=== PATIENT | female | born 1990 | race Caucasian/White ===

== ENCOUNTER 2020-10-19 22:35 | Emergency (ER) | payer OTHER ==
[~2020-10-19] VITALS: Ht 152.4 cm; Wt 64.0 kg
[2020-10-19] MEDS ORDERED: SULF1TAB48 MT (23:58)
[2020-10-19] MEDS ORDERED: CEPH500C2 MT (23:58)
[2020-10-20 01:50] VITALS: BP 102/69
== END 2020-10-20 01:58 | disposition home or self-care (01) ==
LOC: ER 22:35
DX: L89.311 Pressure ulcer of right buttock, stage 1 (principal); G82.20 Paraplegia, unspecified; Z99.3 Dependence on wheelchair; Z74.01 Bed confinement status
CPT/HCPCS: 51702; 99284; A4315

== ENCOUNTER 2020-12-16 22:17 | Inpatient (IN) | payer MEDICAID, OTHER ==
[~2020-12-16] VITALS: Ht 157.5 cm; Wt 81.6 kg
[~2020-12-16 22:17] MED LIST: CEPH500C2 MT; SULF1TAB48 MT
[2020-12-16] MEDS ORDERED: SODIUM CHLORIDE 0.9% 1000ML BAG (SEPSIS BOLUS) IV ONE (23:00)
[2020-12-16 23:47] LABS: INR 1.1; PROTHROMBIN TIME 11.9 sec (9.6-11.0)
[2020-12-16 23:50] LABS: HEMATOCRIT. 25.2 % (36.0-48.0); HEMOGLOBIN. 7.6 g/dL (12.0-16.0); MEAN CORPUSCULAR HEMOGLOBIN 21.3 pg (28.0-32.0); MEAN CORPUSCULAR VOLUME 70.3 fL (81.0-99.0); MEAN PLATELET VOLUME 8.6 fl (7.4-10.4); PLATELET 489 x1000/uL (130-400); RED BLOOD CELL COUNT 3.59 mill/uL (4.2-5.4); RED CELL DISTRIBUTION WIDTH 32.3 % (11.6-14.6)
[2020-12-17 00:03] LABS: CHLORIDE 104 mEq/L (98-107)
[2020-12-17 00:05] LABS: HCG SCREEN NEGATIVE
[2020-12-17] MEDS: NYSTATIN POWDER 15GM TOP SCH ×2 (00:48→09:00)
[2020-12-17] MEDS ORDERED: DIPHENHYDRAMINE 50MG/ML VIAL IV ONE (01:00)
[2020-12-17] MEDS ORDERED: CEFTRIAXONE 1 G PREMIX 50 ML IV ONE (01:45)
[2020-12-17] MEDS ORDERED: VANCOMYCIN 1 G PREMIX 200 ML IV SCH (01:45)
[2020-12-17] MEDS ORDERED: DOCUSATE SODIUM 100MG CAPSULE PO PRN (03:30)
[2020-12-17] MEDS ORDERED: HYDROCODONE/APAP 7.5/325MG 1 TAB TABLET PO PRN (03:30)
[2020-12-17] MEDS ORDERED: CLONIDINE 0.1MG TABLET PO PRN (03:30)
[2020-12-17] MEDS ORDERED: HYDROMORPHONE HCL/PF 2MG/ML CPJ IV PRN (03:30)
[2020-12-17] MEDS ORDERED: ONDANSETRON HCL 4MG/2ML INJ IV PRN (03:30)
[2020-12-17] MEDS ORDERED: MAGNESIUM/ALUMINUM HYDROXIDE/SIMETHICONE 30ML UDC PO PRN (03:30)
[2020-12-17] MEDS ORDERED: METRONIDAZOLE 500 MG PREMIX 100 ML IV SCH (04:00)
[2020-12-17] MEDS: SODIUM CHLORIDE 0.45% 1,000 ML IV SCH ×2 (04:37→17:20)
[2020-12-17 04:50] VITALS: BP 102/56
[2020-12-17 05:20] VITALS: BP 102/56
[2020-12-17] MEDS ORDERED: POTASSIUM CHLORIDE 20MEQ TABLET SR PO SCH (07:15)
[2020-12-17 08:00] VITALS: BP 108/64
[2020-12-17 08:11] LABS: PLATELET ESTIMATE INCREASED
[2020-12-17] MEDS: LEVETIRACETAM 500MG TABLET PO SCH ×2 (09:10→21:19)
[2020-12-17] MEDS: DIPHENHYDRAMINE 50MG CAPSULE PO PRN ×2 (09:10→21:19)
[2020-12-17 12:00] VITALS: BP 104/69
[2020-12-17] MEDS ORDERED: LIDOCAINE HCL 1% 20ML VIAL (Pyxis) INJ ONE (15:08)
[2020-12-17 16:00] VITALS: BP 112/64
[2020-12-17 20:00] VITALS: BP 98/56
[2020-12-17 21:09] LABS: *AMPHETAMINES SCREEN URINE NEGATIVE (NEGATIVE)
[2020-12-17 21:10] LABS: *BARBITURATES SCREEN URINE NEGATIVE (NEGATIVE); *BENZODIAZEPINES SCREEN URINE NEGATIVE (NEGATIVE); *COCAINE SCREEN URINE NEGATIVE (NEGATIVE); METHADONE URINE SCREEN NEGATIVE (NEGATIVE); OPIATES URINE SCREEN NEGATIVE (NEGATIVE); PHENCYCLIDINE URINE SCREEN NEGATIVE (NEGATIVE)
[2020-12-17 21:14] LABS: CANNABINOID URINE SCREEN PRESUMTIVE POSITIVE (NEGATIVE)
[2020-12-17] MEDS: METRONIDAZOLE 500MG TABLET PO SCH (21:19)
[2020-12-18] VITALS (9 sets, daily range): BP systolic 92–110; BP diastolic 45–68
[2020-12-18] MEDS: CEFTRIAXONE 1,000 MG in DEXTROSE 5% WATER 50 ML IV SCH (01:14)
[2020-12-18] MEDS: SODIUM CHLORIDE 0.45% 1,000 ML IV SCH ×2 (05:42→20:00)
[2020-12-18 07:24] LABS: CHLORIDE 111 mEq/L (98-107)
[2020-12-18] MEDS ORDERED: CEFTRIAXONE 1 G PREMIX 50 ML IV SCH (08:00)
[2020-12-18] MEDS: LEVETIRACETAM 500MG TABLET PO SCH ×2 (09:22→21:00)
[2020-12-18] MEDS: METRONIDAZOLE 500MG TABLET PO SCH ×2 (09:22→22:40)
[2020-12-18] MEDS: DIPHENHYDRAMINE 50MG CAPSULE PO PRN ×2 (12:54→19:08)
[2020-12-18 13:14] LABS: BASOPHILS % 0.5 % (0.0-2.0); EOSINOPHILS % 6.3 % (0.0-5.0); HEMATOCRIT. 22.7 % (36.0-48.0); MEAN CORPUSCULAR HEMOGLOBIN 21.7 pg (28.0-32.0); MEAN PLATELET VOLUME 8.6 fl (7.4-10.4); MONOCYTES % 6.2 % (2.0-8.0); PLATELET 389 x1000/uL (130-400); RED BLOOD CELL COUNT 3.15 mill/uL (4.2-5.4); RED CELL DISTRIBUTION WIDTH 31.4 % (11.6-14.6)
[2020-12-18 13:22] LABS: HEMOGLOBIN. 6.8 g/dL (12.0-16.0)
[2020-12-18] MEDS: ACETAMINOPHEN 325MG TABLET PO PRN (18:13)
[2020-12-19] VITALS: BP 94/55
[2020-12-19] MEDS: CEFTRIAXONE 1,000 MG in DEXTROSE 5% WATER 50 ML IV SCH (00:34)
[2020-12-19] MEDS: DIPHENHYDRAMINE 50MG CAPSULE PO PRN ×3 (01:33→23:23)
[2020-12-19 04:00] VITALS: BP 101/68
[2020-12-19 08:00] VITALS: BP 104/68
[2020-12-19] MEDS: METRONIDAZOLE 500MG TABLET PO SCH ×2 (09:28→23:23)
[2020-12-19] MEDS: SODIUM CHLORIDE 0.45% 1,000 ML IV SCH ×2 (09:41→22:40)
[2020-12-19 10:30] LABS: TOTAL IRON BINDING CAPACITY 200 ug/dL (250-450)
[2020-12-19 12:00] VITALS: BP 103/70
[2020-12-19] MEDS: FERROUS SULFATE 325MG TABLET PO SCH ×2 (13:21→17:48)
[2020-12-19 16:00] VITALS: BP 94/56
[2020-12-19 20:00] VITALS: BP 78/39
[2020-12-20] VITALS: BP 101/61
[2020-12-20] MEDS: CEFTRIAXONE 1,000 MG in DEXTROSE 5% WATER 50 ML IV SCH (00:01)
[2020-12-20 08:00] VITALS: BP 94/60
[2020-12-20] MEDS: FERROUS SULFATE 325MG TABLET PO SCH ×3 (08:43→18:01)
[2020-12-20] MEDS: METRONIDAZOLE 500MG TABLET PO SCH ×2 (08:48→22:21)
[2020-12-20 12:00] VITALS: BP 112/69
[2020-12-20 13:20] LABS: BASOPHILS % 0.5 % (0.0-2.0); EOSINOPHILS % 2.9 % (0.0-5.0); HEMATOCRIT. 27.2 % (36.0-48.0); HEMOGLOBIN. 8.2 g/dL (12.0-16.0); LYMPHOCYTES % 12.8 % (20.0-50.0); MEAN CORPUSCULAR HEMOGLOBIN 21.7 pg (28.0-32.0); MEAN CORPUSCULAR VOLUME 71.9 fL (81.0-99.0); MEAN PLATELET VOLUME 8.5 fl (7.4-10.4); MONOCYTES % 4.6 % (2.0-8.0); NEUTROPHILS % 79.2 % (40.0-76.0); PLATELET 483 x1000/uL (130-400); RED BLOOD CELL COUNT 3.78 mill/uL (4.2-5.4); RED CELL DISTRIBUTION WIDTH 30.6 % (11.6-14.6)
[2020-12-20 16:00] VITALS: BP 92/59
[2020-12-20] MEDS: CEFEPIME 2,000 MG in DEXT 5% WATER 100 ML IV SCH (18:01)
[2020-12-20] MEDS: SODIUM CHLORIDE 0.45% 1,000 ML IV SCH (18:07)
[2020-12-20] MEDS: DIPHENHYDRAMINE 50MG CAPSULE PO PRN (18:13)
[2020-12-20 20:00] VITALS: BP 100/61
[2020-12-21] VITALS: BP 107/77
[2020-12-21] MEDS: SODIUM CHLORIDE 0.45% 1,000 ML IV SCH ×2 (01:57→14:49)
[2020-12-21] MEDS: CEFEPIME 2,000 MG in DEXT 5% WATER 100 ML IV SCH ×2 (06:49→17:16)
[2020-12-21] MEDS: FERROUS SULFATE 325MG TABLET PO SCH ×3 (07:03→17:16)
[2020-12-21 08:00] VITALS: BP 111/68
[2020-12-21] MEDS: ASCORBIC ACID 500 MG TABLET PO SCH (09:17)
[2020-12-21] MEDS: ZINC SULFATE 220 MG ( 50 ) CAPSULE PO SCH (09:17)
[2020-12-21] MEDS: METRONIDAZOLE 500MG TABLET PO SCH ×2 (09:18→21:35)
[2020-12-21] MEDS: THIAMINE HCL 100MG TABLET PO SCH (09:18)
[2020-12-21 12:00] VITALS: BP 102/66
[2020-12-21 16:00] VITALS: BP 90/50
[2020-12-21 17:30] VITALS: BP 98/54
[2020-12-21] MEDS: ACETAMINOPHEN 325MG TABLET PO PRN (18:11)
[2020-12-21 20:00] VITALS: BP 105/73
[2020-12-21] MEDS: DIPHENHYDRAMINE 50MG CAPSULE PO PRN (21:35)
[2020-12-22] VITALS: BP 114/75
[2020-12-22] MEDS: SODIUM CHLORIDE 0.45% 1,000 ML IV SCH (03:46)
[2020-12-22] MEDS: CEFEPIME 2,000 MG in DEXT 5% WATER 100 ML IV SCH ×2 (06:41→18:40)
[2020-12-22] MEDS: ACETAMINOPHEN 325MG TABLET PO PRN (11:05)
[2020-12-22] MEDS: METRONIDAZOLE 500MG TABLET PO SCH ×2 (11:06→22:25)
[2020-12-22] MEDS: FERROUS SULFATE 325MG TABLET PO SCH ×3 (11:06→18:40)
[2020-12-22] MEDS: THIAMINE HCL 100MG TABLET PO SCH (11:08)
[2020-12-22] MEDS: ZINC SULFATE 220 MG ( 50 ) CAPSULE PO SCH (11:08)
[2020-12-22] MEDS: ASCORBIC ACID 500 MG TABLET PO SCH (11:08)
[2020-12-22 20:00] VITALS: BP 107/73
[2020-12-22] MEDS: DIPHENHYDRAMINE 50MG CAPSULE PO PRN (22:25)
[2020-12-22 23:55] VITALS: BP 107/64
[2020-12-23] MEDS: CEFEPIME 2,000 MG in DEXT 5% WATER 100 ML IV SCH ×2 (05:33→17:23)
[2020-12-23] MEDS: SODIUM CHLORIDE 0.45% 1,000 ML IV SCH (07:06)
[2020-12-23 08:00] VITALS: BP 100/66
[2020-12-23] MEDS: ZINC SULFATE 220 MG ( 50 ) CAPSULE PO SCH (08:55)
[2020-12-23] MEDS: THIAMINE HCL 100MG TABLET PO SCH (08:56)
[2020-12-23] MEDS: ASCORBIC ACID 500 MG TABLET PO SCH (08:56)
[2020-12-23] MEDS: FERROUS SULFATE 325MG TABLET PO SCH ×3 (08:56→17:23)
[2020-12-23 12:00] VITALS: BP 102/64
[2020-12-23 17:45] VITALS: BP 102/64
== END 2020-12-23 18:25 | disposition home health service (06) | DRG 344 ==
LOC: ER 22:17 → 6EST 12-17 02:30 → EDBEDREQ 12-17 02:52 → EDBEDREQSVC 12-17 02:52 → EDBEDREQTM 12-17 02:52 → ENRESERV 12-17 03:44
PROVIDERS: ADMIT Hospitalist; ATTEND Hospitalist
PROC: B5181ZA Fluoroscopy of Superior Vena Cava using Low Osmolar Contrast, Guidance (ICD-10-PCS; 2020-12-17)
PROC: 02HV33Z Insertion of Infusion Device into Superior Vena Cava, Percutaneous Approach (ICD-10-PCS; 2020-12-17)
PROC: B548ZZA Ultrasonography of Superior Vena Cava, Guidance (ICD-10-PCS; 2020-12-17)
PROC: 30233N1 Transfusion of Nonautologous Red Blood Cells into Peripheral Vein, Percutaneous Approach (ICD-10-PCS; principal; 2020-12-18)
DX: M86.151 Other acute osteomyelitis, right femur (principal); D68.59 Other primary thrombophilia; G82.20 Paraplegia, unspecified; E44.0 Moderate protein-calorie malnutrition; L98.419 Non-pressure chronic ulcer of buttock with unspecified severity; Z20.822 Contact with and (suspected) exposure to COVID-19; E87.6 Hypokalemia; B96.5 Pseudomonas (aeruginosa) (mallei) (pseudomallei) as the cause of diseases classified elsewhere; E78.00 Pure hypercholesterolemia, unspecified; F17.210 Nicotine dependence, cigarettes, uncomplicated; N39.0 Urinary tract infection, site not specified; Z68.32 Body mass index [BMI] 32.0-32.9, adult; Z86.711 Personal history of pulmonary embolism; Z86.718 Personal history of other venous thrombosis and embolism; Z95.828 Presence of other vascular implants and grafts
CPT/HCPCS: 36415; 36573; 71045; 80053; 80305; 83540; 83550; 83605; 84145; 84484; 84703; 85025; 86078; 86850; 86900; 86920; 87070; 87077; 87186; 87426; 93005; 99285; C1725; C1769; J0692; J0696; J1200; J3370; J3490; J7030; J7040; J7060; J7070; P9016; Q0163; A4315